=== PATIENT | female | born 1955 | race Caucasian/White ===

== ENCOUNTER 2018-09-03 01:50 | Emergency (ER) | payer MEDICARE ==
[~2018-09-03] VITALS: Ht 157.5 cm; Wt 137.0 kg
[2018-09-03] MEDS ORDERED: GENTAMICIN15 ML/BTL OD (02:29)
[2018-09-03] MEDS ORDERED: (None)3.5 GM OD (02:29)
[2018-09-03 02:36] VITALS: BP 144/51
== END 2018-09-03 02:46 | disposition home or self-care (01) ==
LOC: ED 01:50
DX: S05.01XA Injury of conjunctiva and corneal abrasion without foreign body, right eye, initial encounter (principal); H10.9 Unspecified conjunctivitis; I10 Essential (primary) hypertension; M19.90 Unspecified osteoarthritis, unspecified site; E78.00 Pure hypercholesterolemia, unspecified; F32.9 Major depressive disorder, single episode, unspecified; X58.XXXA Exposure to other specified factors, initial encounter

== ENCOUNTER → 2018-09-22 | Outpatient (REF) | payer MEDICARE ==
[~2018-09-22] MED LIST: (None)3.5 GM OD; GENTAMICIN15 ML/BTL OD
== END | disposition home or self-care (01) ==
LOC: DI 09:30
PROVIDERS: ATTEND Internal Medicine
DX: M25.561 Pain in right knee (principal); M17.11 Unilateral primary osteoarthritis, right knee

== ENCOUNTER 2021-03-08 13:28 | Emergency (ER) | payer MEDICARE ==
[~2021-03-08 13:28] MED LIST changes: +CITALOPRAM40 M1 PO; +LIPITOR10 M1 PO; +LORTAB 1010 MG PO; +LOSARTAN POTASS50 MG PO; +WELLBUTRIN XL300 MG PO
[2021-03-08] MEDS ORDERED: CEPHALEXIN500 M1 PO (14:54)
[2021-03-08 15:10] VITALS: BP 155/81
== END 2021-03-08 15:18 | disposition home or self-care (01) ==
LOC: ED 13:28
DX: L03.116 Cellulitis of left lower limb (principal); I10 Essential (primary) hypertension; F32.9 Major depressive disorder, single episode, unspecified; E78.00 Pure hypercholesterolemia, unspecified

== ENCOUNTER 2021-03-29 06:33 | Day surgery (SDC) | payer MEDICARE ==
[~2021-03-29] VITALS: Ht 160 cm; Wt 133.8 kg
[~2021-03-29 06:33] MED LIST changes: +CEPHALEXIN500 M1 PO
[2021-03-29 09:04] VITALS: BP 136/60
[2021-03-29] MEDS ORDERED: LORTAB 1010 MG PO (09:28)
== END 2021-03-29 09:30 | disposition home or self-care (01) ==
LOC: ORM 06:33
PROVIDERS: ATTEND Anesthesiology Pain Medicine
DX: M17.11 Unilateral primary osteoarthritis, right knee (principal)

== ENCOUNTER 2021-04-26 06:53 | Day surgery (SDC) | payer MEDICARE ==
[~2021-04-26] VITALS: Ht 160 cm; Wt 133.8 kg
[2021-04-26 08:59] VITALS: BP 128/67
== END 2021-04-26 09:20 | disposition home or self-care (01) ==
LOC: ORM 06:53
PROVIDERS: ATTEND Anesthesiology Pain Medicine
DX: M54.5 Low back pain (principal); M12.9 Arthropathy, unspecified; M46.1 Sacroiliitis, not elsewhere classified

== ENCOUNTER 2021-07-19 06:21 | Day surgery (SDC) | payer MEDICARE ==
[~2021-07-19] VITALS: Ht 160 cm; Wt 133.4 kg
[2021-07-19 09:28] VITALS: BP 144/68
== END 2021-07-19 09:37 | disposition home or self-care (01) ==
LOC: ORM 06:21
PROVIDERS: ATTEND Anesthesiology Pain Medicine
DX: M25.561 Pain in right knee (principal); M17.11 Unilateral primary osteoarthritis, right knee

== ENCOUNTER 2021-11-26 09:09 | Observation (INO) | payer MEDICARE ==
[2021-11-26] VITALS (21 sets, daily range): BP systolic 108–147; BP diastolic 38–76
[~2021-11-26] VITALS: Ht 160 cm; Wt 139.0 kg
[~2021-11-26 09:09] MED LIST changes: +BUPROPN HCL300 MG PO; -WELLBUTRIN XL300 MG PO
[2021-11-26 09:59] LABS: HEMATOCRIT 35.7 % (37.0-47.0); HEMOGLOBIN 10.9 g/dl (12.0-16.0); IMMATURE GRANULOCYTES 0.6 % (0.0-5.0); MEAN CELL VOLUME 81.9 fL CALC (80.0-100.0); MEAN CORPUSCULAR HGB CONC 30.5 g/dL CAL (32.0-36.0); NEUT# 16.39 thou/uL (2.00-7.15); RED BLOOD COUNT 4.36 mill/uL (4.20-5.60); RED CELL DISTRI WIDTH 15.7 % (11.5-15.5)
[2021-11-26 10:22] LABS: ALBUMIN 3.3 g/dL (3.2-5.0); BILIRUBIN, TOTAL 0.4 mg/dL (0.0-1.4); CREATININE 1.5 mg/dL (0.5-1.0); POTASSIUM 3.7 mmol/l (3.5-5.1)
[2021-11-27] VITALS (7 sets, daily range): BP systolic 108–151; BP diastolic 49–81
[2021-11-27 05:22] LABS: HEMATOCRIT 33.2 % (37.0-47.0); HEMOGLOBIN 10.1 g/dl (12.0-16.0); MEAN CELL VOLUME 82.8 fL CALC (80.0-100.0); MEAN CORPUSCULAR HGB 25.2 pG CALC (26.0-32.0); MEAN CORPUSCULAR HGB CONC 30.4 g/dL CAL (32.0-36.0); RED BLOOD COUNT 4.01 mill/uL (4.20-5.60); RED CELL DISTRI WIDTH 15.7 % (11.5-15.5)
[2021-11-27 05:48] LABS: CREATININE 1.2 mg/dL (0.5-1.0); MAGNESIUM 1.8 mg/dL (1.6-2.3); POTASSIUM 3.7 mmol/l (3.5-5.1)
[2021-11-28] VITALS (7 sets, daily range): BP systolic 111–133; BP diastolic 49–70
[2021-11-28 05:37] LABS: HEMOGLOBIN 9.9 g/dl (12.0-16.0); IMMATURE GRANULOCYTES 0.4 % (0.0-5.0); MEAN CELL VOLUME 83.5 fL CALC (80.0-100.0); MEAN CORPUSCULAR HGB 25.1 pG CALC (26.0-32.0); NEUT# 5.01 thou/uL (2.00-7.15); RED BLOOD COUNT 3.95 mill/uL (4.20-5.60); RED CELL DISTRI WIDTH 15.5 % (11.5-15.5)
[2021-11-28 05:52] LABS: ALBUMIN 2.7 g/dL (3.2-5.0); CREATININE 1.1 mg/dL (0.5-1.0); MAGNESIUM 1.8 mg/dL (1.6-2.3); POTASSIUM 3.7 mmol/l (3.5-5.1); TOTAL PROTEIN 5.1 g/dL (6.3-8.2)
[2021-11-28 06:01] LABS: BILIRUBIN, TOTAL 0.2 mg/dL (0.0-1.4)
[2021-11-29] VITALS (8 sets, daily range): BP systolic 130–157; BP diastolic 53–81
[2021-11-29 05:25] LABS: HEMATOCRIT 34.1 % (37.0-47.0); HEMOGLOBIN 10.1 g/dl (12.0-16.0); MEAN CORPUSCULAR HGB 24.9 pG CALC (26.0-32.0); MEAN CORPUSCULAR HGB CONC 29.6 g/dL CAL (32.0-36.0); RED BLOOD COUNT 4.06 mill/uL (4.20-5.60); RED CELL DISTRI WIDTH 15.4 % (11.5-15.5)
[2021-11-29 05:30] LABS: ANION GAP 7 (6-22 (CALC)); BUN 16 mg/dL (8-23); BUN/CREATININE RATIO 17 (12-20 (CALC)); CARBON DIOXIDE 22 mmol/l (22-30); CHLORIDE 113 mmol/l (95-108); CREATININE 0.9 mg/dL (0.5-1.0); GFR > 60 ML/MIN (>=60 (CALC)); GFR FOR AFR.AMER. > 60 ML/MIN (>=60 (CALC)); MAGNESIUM 1.6 mg/dL (1.6-2.3); POTASSIUM 3.6 mmol/l (3.5-5.1); SODIUM 139 mmol/l (137-146)
[2021-11-29] MEDS ORDERED: VIBRAMYCIN100 M2 PO (18:29)
[2021-11-29] MEDS ORDERED: AMOXICILLIN500 MG PO (18:30)
[2021-11-29] MEDS ORDERED: TRAMADOL HCL50 MG PO (18:30)
[2021-11-29] MEDS ORDERED: LASIX20 MG PO (18:41)
== END 2021-11-29 19:00 | disposition home or self-care (01) ==
LOC: ED 09:09 → ED-I 12:20 → ED 13:25 → MS2 13:26
PROVIDERS: Hospitalist; Nurse Practitioner; ADMIT Family Medicine; ATTEND Internal Medicine
DX: L03.116 Cellulitis of left lower limb (principal); I10 Essential (primary) hypertension; F32.A Depression, unspecified; E78.00 Pure hypercholesterolemia, unspecified; R19.7 Diarrhea, unspecified; E66.9 Obesity, unspecified; Z98.84 Bariatric surgery status; Z68.43 Body mass index [BMI] 50.0-59.9, adult; U07.1 COVID-19
CPT/HCPCS: G0378; J3370; Q9967

== ENCOUNTER 2021-12-03 10:05 | Observation (INO) | payer MEDICARE ==
[~2021-12-03] VITALS: Ht 160 cm; Wt 143.2 kg
[~2021-12-03 10:05] MED LIST changes: +AMOXICILLIN500 MG PO; +LASIX20 MG PO; +TRAMADOL HCL50 MG PO; +VIBRAMYCIN100 M2 PO
[2021-12-03 10:19] VITALS: BP 130/58
[2021-12-03] MEDS ORDERED: ESCITALOPRAM OX10 MG PO (10:31)
[2021-12-03 10:43] LABS: HEMATOCRIT 35.4 % (37.0-47.0); HEMOGLOBIN 10.4 g/dl (12.0-16.0); IMMATURE GRANULOCYTES 1.8 % (0.0-5.0); MEAN CELL VOLUME 83.5 fL CALC (80.0-100.0); MEAN CORPUSCULAR HGB 24.5 pG CALC (26.0-32.0); MEAN CORPUSCULAR HGB CONC 29.4 g/dL CAL (32.0-36.0); NEUT# 14.15 thou/uL (2.00-7.15); RED BLOOD COUNT 4.24 mill/uL (4.20-5.60); RED CELL DISTRI WIDTH 15.5 % (11.5-15.5)
[2021-12-03 11:03] LABS: ALBUMIN 3.3 g/dL (3.2-5.0); BILIRUBIN, TOTAL 0.3 mg/dL (0.0-1.4); CREATININE 1.2 mg/dL (0.5-1.0); TOTAL PROTEIN 6.9 g/dL (6.3-8.2)
[2021-12-03 19:18] VITALS: BP 113/50
[2021-12-04 04:43] VITALS: BP 123/52
[2021-12-04 05:23] LABS: HEMATOCRIT 30.8 % (37.0-47.0); MEAN CELL VOLUME 84.6 fL CALC (80.0-100.0); MEAN CORPUSCULAR HGB 24.7 pG CALC (26.0-32.0); MEAN CORPUSCULAR HGB CONC 29.2 g/dL CAL (32.0-36.0); RED BLOOD COUNT 3.64 mill/uL (4.20-5.60); RED CELL DISTRI WIDTH 15.6 % (11.5-15.5)
[2021-12-04 05:46] LABS: CREATININE 1.2 mg/dL (0.5-1.0); MAGNESIUM 1.7 mg/dL (1.6-2.3); POTASSIUM 3.6 mmol/l (3.5-5.1)
[2021-12-04 07:00] VITALS: BP 122/53
[2021-12-04 07:13] VITALS: BP 122/53
[2021-12-04 14:10] VITALS: BP 146/56
[2021-12-04 15:21] VITALS: BP 146/56
[2021-12-04 19:15] VITALS: BP 125/51
[2021-12-05 03:58] VITALS: BP 118/56
[2021-12-05 06:19] LABS: HEMATOCRIT 31.9 % (37.0-47.0); HEMOGLOBIN 9.2 g/dl (12.0-16.0); MEAN CELL VOLUME 84.4 fL CALC (80.0-100.0); MEAN CORPUSCULAR HGB 24.3 pG CALC (26.0-32.0); MEAN CORPUSCULAR HGB CONC 28.8 g/dL CAL (32.0-36.0); RED BLOOD COUNT 3.78 mill/uL (4.20-5.60); RED CELL DISTRI WIDTH 15.3 % (11.5-15.5)
[2021-12-05 06:39] LABS: CREATININE 1.1 mg/dL (0.5-1.0); MAGNESIUM 1.6 mg/dL (1.6-2.3); POTASSIUM 4.1 mmol/l (3.5-5.1)
[2021-12-05 07:22] VITALS: BP 134/57
[2021-12-05 14:33] VITALS: BP 138/51
[2021-12-05 15:20] VITALS: BP 138/51
[2021-12-05 19:01] VITALS: BP 141/60
[2021-12-06 05:32] VITALS: BP 157/77
[2021-12-06 06:05] LABS: HEMATOCRIT 31.8 % (37.0-47.0); HEMOGLOBIN 9.3 g/dl (12.0-16.0); MEAN CELL VOLUME 83.2 fL CALC (80.0-100.0); MEAN CORPUSCULAR HGB 24.3 pG CALC (26.0-32.0); MEAN CORPUSCULAR HGB CONC 29.2 g/dL CAL (32.0-36.0); RED BLOOD COUNT 3.82 mill/uL (4.20-5.60)
[2021-12-06 06:16] LABS: ANION GAP 12 (6-22 (CALC)); BUN 14 mg/dL (8-23); BUN/CREATININE RATIO 14 (12-20 (CALC)); CARBON DIOXIDE 27 mmol/l (22-30); CHLORIDE 103 mmol/l (95-108); GFR 55 ML/MIN (>=60 (CALC)); GFR FOR AFR.AMER. > 60 ML/MIN (>=60 (CALC)); MAGNESIUM 1.7 mg/dL (1.6-2.3); POTASSIUM 4.3 mmol/l (3.5-5.1); SODIUM 138 mmol/l (137-146)
[2021-12-06 07:02] VITALS: BP 151/63
[2021-12-06 08:00] VITALS: BP 151/63
[2021-12-06 15:20] VITALS: BP 172/79
[2021-12-06 19:27] VITALS: BP 177/69
[2021-12-07 03:57] VITALS: BP 161/77
[2021-12-07 05:22] LABS: HEMATOCRIT 33.5 % (37.0-47.0); HEMOGLOBIN 10.1 g/dl (12.0-16.0); MEAN CELL VOLUME 81.9 fL CALC (80.0-100.0); MEAN CORPUSCULAR HGB 24.7 pG CALC (26.0-32.0); MEAN CORPUSCULAR HGB CONC 30.1 g/dL CAL (32.0-36.0); RED BLOOD COUNT 4.09 mill/uL (4.20-5.60); RED CELL DISTRI WIDTH 15.1 % (11.5-15.5)
[2021-12-07 05:45] LABS: ANION GAP 13 (6-22 (CALC)); BUN 14 mg/dL (8-23); BUN/CREATININE RATIO 14 (12-20 (CALC)); CARBON DIOXIDE 29 mmol/l (22-30); CHLORIDE 100 mmol/l (95-108); GFR 55 ML/MIN (>=60 (CALC)); GFR FOR AFR.AMER. > 60 ML/MIN (>=60 (CALC)); MAGNESIUM 1.6 mg/dL (1.6-2.3); POTASSIUM 4.4 mmol/l (3.5-5.1); SODIUM 138 mmol/l (137-146)
[2021-12-07 07:52] VITALS: BP 160/67
[2021-12-07 08:00] VITALS: BP 160/67
[2021-12-07] MEDS ORDERED: VIBRAMYCIN100 M2 PO (13:36)
[2021-12-07] MEDS ORDERED: KEFLEX500 MG PO (13:38)
[2021-12-07] MEDS ORDERED: LORTAB 1010 MG PO (13:41)
[2021-12-07 14:20] VITALS: BP 141/82
[2021-12-07 14:35] VITALS: BP 141/82
== END 2021-12-07 16:14 ==
LOC: ED 10:05 → ED-I 10:32 → ED 10:32 → ED-I 10:50 → ED 11:09 → MS2 11:10
PROVIDERS: Family Medicine; Hospitalist; ADMIT Internal Medicine; ATTEND Internal Medicine
DX: L03.116 Cellulitis of left lower limb (principal); I10 Essential (primary) hypertension; E11.9 Type 2 diabetes mellitus without complications; F41.8 Other specified anxiety disorders; E66.01 Morbid (severe) obesity due to excess calories; M25.562 Pain in left knee; G89.29 Other chronic pain; Z68.43 Body mass index [BMI] 50.0-59.9, adult; Z98.84 Bariatric surgery status; Z20.822 Contact with and (suspected) exposure to COVID-19
CPT/HCPCS: J1650; J3370; Q3014

== ENCOUNTER 2022-03-14 07:13 | Day surgery (SDC) | payer MEDICARE ==
[~2022-03-14] VITALS: Ht 160 cm; Wt 133.8 kg
[~2022-03-14 07:13] MED LIST changes: +ESCITALOPRAM OX10 MG PO; +KEFLEX500 MG PO
[2022-03-14 13:56] VITALS: BP 134/57
== END 2022-03-14 09:16 | disposition home or self-care (01) ==
LOC: ORM 07:13
PROVIDERS: ATTEND Physical Medicine & Rehabilitation Pain Medicine
DX: M47.816 Spondylosis without myelopathy or radiculopathy, lumbar region (principal)

== ENCOUNTER 2022-04-11 06:58 | Day surgery (SDC) | payer MEDICARE ==
[~2022-04-11] VITALS: Ht 160 cm; Wt 133.8 kg
[2022-04-11 10:14] VITALS: BP 122/56
== END 2022-04-11 09:10 | disposition home or self-care (01) ==
LOC: ORM 06:58
PROVIDERS: ATTEND Physical Medicine & Rehabilitation
DX: M25.561 Pain in right knee (principal); M25.562 Pain in left knee; G89.29 Other chronic pain; M17.11 Unilateral primary osteoarthritis, right knee
CPT/HCPCS: Q9967

== ENCOUNTER 2022-09-05 07:11 | Day surgery (SDC) | payer MEDICARE ==
[~2022-09-05] VITALS: Ht 157.5 cm; Wt 131.5 kg
[~2022-09-05 07:11] MED LIST changes: +PHENTERMINE HCL30 MG PO
[2022-09-05 08:53] VITALS: BP 155/86
== END 2022-09-05 09:00 | disposition home or self-care (01) ==
LOC: ORM 07:11
PROVIDERS: ATTEND Physical Medicine & Rehabilitation Pain Medicine
DX: M47.816 Spondylosis without myelopathy or radiculopathy, lumbar region (principal); G89.4 Chronic pain syndrome; M62.838 Other muscle spasm; M51.36 Other intervertebral disc degeneration, lumbar region; Z79.899 Other long term (current) drug therapy

== ENCOUNTER 2022-10-03 07:42 | Day surgery (SDC) | payer MEDICARE ==
[~2022-10-03] VITALS: Ht 157.5 cm; Wt 130.2 kg
[2022-10-03 10:45] VITALS: BP 151/88
== END 2022-10-03 10:09 | disposition home or self-care (01) ==
LOC: ORM 07:42
PROVIDERS: ATTEND Physical Medicine & Rehabilitation Pain Medicine
DX: M47.816 Spondylosis without myelopathy or radiculopathy, lumbar region (principal)